=== PATIENT | female | born 1965 | race Two or more races ===

== ENCOUNTER 2024-10-20 23:31 | Emergency (ER) | payer MEDICAID, SELFPAY ==
[2024-10-20 23:32] VITALS: BMI 34.7
[2024-10-20 23:41] VITALS: BP 149/84; PULSE 67; RESP 16; TEMP 36.9; O2SAT 96
--- NOTE | 2024-10-21 00:17 | EDNOTE_ITS ---
ED Skin Abcess FB-RME/HPI General Chief complaint: Ear Stated complaint: LEFT EAR RUPTURE BLISTER Time Seen by Provider: 10/20/24 23:54 Arrival date/time: 10/20/24 23:31 59F with history of HTN and psych presents to ED with L outer ear and upper back painful and itchy rash. Rash started on L outer ear after she used a near hair dye. Limitations: no limitations Related Data Home Medications ?Medication ?Instructions ?Recorded ?Confirmed Hydrocodone/Acetaminophen * (NORCO 1 tab PO Q8HR PRN P AIN #0 tabs 07/03/14 5/325 *) Held on 09/24/22. Instructions: Resume on 09/25/22. MAY RESUME AFTER 24 HOURS ibuprofen 800 mg tablet 800 mg PO Q8HR PRN PAIN #0 t abs 07/03/14 Held on 09/24/22. Instructions: Resume on 09/25/22. MAY RESUME AFTER 24 HOURS paroxetine HCl 20 mg tablet (Paxil) 20 mg PO QAM #0 ta bs 07/03/14 losartan 50 mg tablet mg 09/23/22 omeprazole 40 mg capsule,delayed mg 09/23/22 release paroxetine HCl 20 mg tablet 20 mg PO DAILY 09/23/22 Previous Rx's ?Medication ?Instructions ?Recorded clobetasol 0.05 % topical cream 1 applic topical BID 2 weeks #15 10/20/24 grams Allergies Allergy/AdvReac Type Severity Reaction Status Date / Time No Known Allergies Allergy Verified 10/20/24 23:32 Review of Systems Review of Systems Systems Reviewed: All systems reviewed, normal except as documented Constitutional Constitutional: Reports system reviewed and no additional complaints, except as documented, Denies fever(s) and Denies headache(s) ENT Ears, Nose, Mouth, and Throat: Denies disequilibrium and Denies headache(s) Cardiovascular Cardiovascular: Reports system reviewed and no additional complaints, except as documented, Denies chest pain and Denies dyspnea Respiratory Respiratory: Reports system reviewed and no additional complaints, except as documented, Denies cough and Denies dyspnea Gastrointestinal Gastrointestinal: Reports system reviewed and no additional complaints, except as documented, Denies abdominal pain, Denies nausea and Denies vomiting Integumentary/Breasts Skin/Breast: Reports as per HPI, Reports pruritus, Reports rash and Reports skin pain Neurologic Neurologic: Reports system reviewed and no additional complaints, except as documented, Denies confusion, Denies disequilibrium and Denies headache(s) Psychiatric Psychiatric: Denies confusion Past Medical History Past Medical History NEUROLOGIC: Negative Neurological Disorders or Seizures CARDIAC: Positive Cardiac Disorders and Hypertension; Negative Congestive Heart Failure RESPIRATORY: Negative Chronic Obstructive Pulmonary Disease (COPD) GASTROINTESTINAL: Positive Gastroesophageal Reflux Disease GENITOURINARY: Negative Genitourinary Disorders or Renal Disease ENDOCRINE: Negative Endocrine Disorders, Diabetes Mellitus Type 1 or Diabetes Mellitus Type 2 HEMATOLOGIC: Negative Blood Disorders OTHER HISTORY: Positive Chicken Pox; Negative Blood Transfusions, Blood Transfusion Reaction or Anesthesia Reactions Family History FAMILY HISTORY: Positive Family Cancer (GRANDFATHER BONE CA, FATHER THYROID CA, SON OSTEOSARCOMA); Negative Family Anesthesia Reaction Surgical History SURGICAL: Positive Abdominal Surgery, Hysterectomy, Tubal Ligation and Section Social History SMOKING STATUS: Never smoker ED Exam General Limitations: Present no limitations General appearance: Present alert and in no apparent distress Head Head exam: Present atraumatic Eye Eye exam: Present normal appearance, PERRL and EOMI ENT ENT exam: Present normal exam, normal oropharynx and mucous membranes moist Neck Neck exam: Present normal inspection, full ROM and trachea midline Chest Chest inspection: Present normal inspection and symmetric chest wall rise Respiratory Respiratory exam: Present normal lung sounds bilaterally Cardiovascular Cardiovascular exam: Present regular rate, normal rhythm and normal heart sounds Abdominal Exam Abdominal exam: Present soft and normal bowel sounds Extremities Exam Extremities exam: Present normal inspection and full ROM Back Exam Back exam: Present normal inspection and full ROM Neurological Exam Neurological exam: Present alert, oriented X3 and CN II-XII intact Psychiatric Psychiatric exam: Present normal affect and normal mood Skin Skin exam: Present warm, dry, intact, normal color and rash Course Quality Measures none Vital Signs Vital signs: Vital Signs Temperature 98.4 F 10/20/24 23:41 Pulse Rate 67 10/20/24 23:41 Respiratory Rate 16 10/20/24 23:41 Blood Pressure 149/84 H 10/20/24 23:41 Pulse Oximetry (%) 96 10/20/24 23:41 Oxygen Delivery Method Room Air 10/20/24 23:41 O2 at 96% on RA and WNLs Skin / Abscess / Foreign Body MDM Narrative MDM Narrative:: 59F with history of HTN and psych presents to ED with L outer ear and upper back painful and itchy rash. Rash started on L outer ear after she used a near hair dye. Physical exam reveals rash on L outer ear with some blistering, as well as on bilateral upper back along non-dermatomal path. Patient is afebrile, calm, and alert. Likely contact dermatitis from hair dye. Patient data External records reviewed:: [facility] previous records Clinical information provided by:: patient Social determinants that could affect healthcare access:: none Patient has the following chronic illnesses:: none How is presenting disease/condition affected by chronic disease/condition?: no chronic disease Evaluation data The following diagnostics were reviewed and interpreted by me:: other (specify) (none) Lab and/or radiology exams considered but not ordered:: not ordered Interpretation Summary: n/a Medications / Prescriptions Medications or Prescriptions considered but not ordered:: not ordered Medication administrations:: n/a Consultations Consultation(s) initiated? (list below): No Diagnosis Skin/Abscess Differential Diagnosis: abscess of skin or subcutaneous tissue, viral exanthem, dermatophytosis, urticaria, herpes zoster, allergic reaction to drug, cellulitis, eczema, insect bites, impetigo and contact dermatitis Most likely diagnosis given after review of the tests above:: contact dermatitis Admission Indicated Admission indicated?: not indicated Admission Request Was there a request for admission?: No Disposition Plan Disposition Plan: Discharge Discharge Attestation Discharge Attestation: The patient and all family members were given an opportunity to ask questions and understood the discharge instructions. Discharge instructions specifically effects, indications for sooner follow up or return to the emergency department, and the expected course of current diagnosis. Patient condition: Stable Discharge Plan Plan Patient Disposition: HOME (Self Care) Disposition Comment: Stable Prescriptions/Referrals Prescriptions/Med Rec: New clobetasol 0.05 % cream 1 applic topical BID 14 Days Qty: 15 0RF No Action ibuprofen 800 MG tablet 800 mg PO Q8HR PRN (Reason: PAIN) Qty: 0 paroxetine HCl [Paxil] 20 MG tablet 20 mg PO QAM Qty: 0 Hydrocodone/Acetaminophen * (NORCO 5/325 *) 1 TAB tablet 1 tab PO Q8HR PRN (Reason: PAIN) Qty: 0 losartan 50 mg tablet Patient Comments: TAKE 1 TABLET BY MOUTH EVERY DAY omeprazole 40 mg capsule,delayed release(DR/EC) Patient Comments: TAKE 1 CAPSULE BY MOUTH EVERY DAY paroxetine HCl 20 mg tablet 20 mg PO DAILY Patient Comments: TAKE 1 TABLET BY MOUTH EVERY DAY Problem List Clinical Impression: Contact dermatitis Patient/Caregiver Discharge Instructions Education Materials: ED Contact Dermatitis Additional Instructions: Please follow-up with PCP within 24-48 hours and return immediately if symptoms worsen. Do not apply cream to skin folds or face. Print Language: Wolof Stand Alone Forms: Patient Portal Info Letter PA/FINISH PRODUCTION MANAGER Supervising Physician PA/FINISH PRODUCTION MANAGER Supervising Physician: Dr. Watkins
== END 2024-10-21 00:34 | disposition home or self-care (01) ==
LOC: SERX 10-21 00:07
PROVIDERS: Emergency Provider Emergency Medicine
DX: L25.9 Unspecified contact dermatitis, unspecified cause (principal); I10 Essential (primary) hypertension
CPT/HCPCS: 99281

== ENCOUNTER 2024-11-17 07:21 | Emergency (ER) | payer MEDICAID, SELFPAY ==
[2024-11-17 07:37] VITALS: BP 154/81; PULSE 74; RESP 18; TEMP 36.8; O2SAT 97; BMI 33.5
--- NOTE | 2024-11-17 07:53 | PD.EDSKIN ---
ED Skin Abcess FB-RME/HPI General Chief complaint: Skin/Abscess/Foreign Body Stated complaint: RASH ALL OVER BODY; SEEN 11/20/24 ER FOR SAME Time Seen by Provider: 11/17/24 07:24 Source: patient Arrival date/time: 11/17/24 07:21 This is a 59-year-old female presents to the emergency department with complaints of rash throughout upper body. Reports she was seen by previous provider was given ointment however reports ointment is not relieving her symptoms. Patient here for second evaluation medications. Patient denies shortness of breath no oral involvement. Mode of arrival: ambulatory Related Data Home Medications ?Medication ?Instructions ?Recorded ?Confirmed Hydrocodone/Acetaminophen * (NORCO 1 tab PO Q8HR PRN PAIN #0 tabs 07/03/14 5/325 *) Held on 09/24/22. Instructions: Resume on 09/25/22. MAY RESUME AFTER 24 HOURS ibuprofen 800 mg tablet 800 mg PO Q8HR PRN PAIN #0 tabs 07/03/14 Held on 09/24/22. Instructions: Resume on 09/25/22. MAY RESUME AFTER 24 HOURS paroxetine HCl 20 mg tablet (Paxil) 20 mg PO QAM #0 tabs 07/03/14 losartan 50 mg tablet mg 09/23/22 omeprazole 40 mg capsule,delayed mg 09/23/22 release paroxetine HCl 20 mg tablet 20 mg PO DAILY 09/23/22 09/23/22 Allergies Allergy/AdvReac Type Severity Reaction Status Date / Time No Known Allergies Allergy Verified 11/17/24 07:25 Review of Systems Review of Systems Systems Reviewed: All systems reviewed, normal except as documented Narrative Review of Systems: Gen: No fever, no chills, no weight loss EYES: No discharge, no visual changes, no pain HEENT: No ear pain, no congestion, no sore throat PULM: No shortness of breath, no cough, no congestion CV: No chest pain, no dyspnea on exertion, no palpitations GI: No nausea, no vomiting, no diarrhea, no pain, no constipation : No frequency, no urgency, no dysuria Musc/skel: No joint pain, no back pain Skin: +rash upper body Psyc: No hallucinations, no depression Heme/Lymph: No easy bleeding or bruising tendencies Neuro: No weakness, no headache ED Exam Narrative Physical exam: General: Sittiing in Exam table in no acute distress, answering questions appropriately HENT: normocephalic, atraumatic, EOMI, PERRLA, moist mucous membranes Chest: chest wall is nontender Cardiac: regular rate and rhythm, normal S1 and S2, no murmurs, rubs, or gallops, capillary refill ?2 seconds Pulmonary: clear to auscultation bilaterally, no wheezing, crackles, or rhonchi Abdominal: active bowel sounds, soft, nontender, nondistended Neuro: A&OX3, CN II-XII intact, sensation grossly intact bilaterally in UE and LE. Skin:Macule papule rash upper chest and bilateral arms. Ext: no lower extremity edema Course Quality Measures none Orders Category Date Time Status Dexamethasone Inj [Decadron Inj] Med 11/17/24 07:42 Discontinued 10 mg IM X1 ONE Vital Signs Vital signs: Vital Signs Temperature 98.2 F 11/17/24 07:37 Pulse Rate 74 11/17/24 07:37 Respiratory Rate 18 11/17/24 07:37 Blood Pressure 154/81 H 11/17/24 07:37 Pulse Oximetry (%) 97 11/17/24 07:37 Oxygen Delivery Method Room Air 11/17/24 07:37 Skin / Abscess / Foreign Body MDM Narrative MDM Narrative:: Evaluated for possible contact dermatitis secondary to allergies. Advised patient to continue allergy medication. Benadryl as needed. Dexamethasone given today ER precautions given. Jaimee to follow-up with her PCP for allergy testing. Patient data External records reviewed:: [facility] previous records Clinical information provided by:: patient Social determinants that could affect healthcare access:: none Patient has the following chronic illnesses:: no How is presenting disease/condition affected by chronic disease/condition?: no chronic disease Evaluation data The following diagnostics were reviewed and interpreted by me:: other (specify) Lab and/or radiology exams considered but not ordered:: no Interpretation Summary: no Medications / Prescriptions Medications or Prescriptions considered but not ordered:: no Medication administrations:: Medication Administration History Discontinued Medications Dexamethasone Sodium Phosphate (Dexamethasone Sod Phos Inj 10 Mg/Ml Vial) 10 mg IM X1 ONE Stop: 11/17/24 07:43 Last Admin: 11/17/24 08:01 Dose: 10 mg Documented By: ER All medications administered and effective Consultations Consultation(s) initiated? (list below): No Diagnosis Skin/Abscess Differential Diagnosis: abscess of skin or subcutaneous tissue, urticaria, allergic reaction to drug, cellulitis, eczema and contact dermatitis Most likely diagnosis given after review of the tests above:: Contact dermatitis possibly allergic Admission Indicated Admission indicated?: not indicated Admission Request Was there a request for admission?: No Disposition Plan Disposition Plan: Discharge Discharge Attestation Discharge Attestation: The patient and all family members were given an opportunity to ask questions and understood the discharge instructions. Discharge instructions specifically effects, indications for sooner follow up or return to the emergency department, and the expected course of current diagnosis. Patient condition: Stable Discharge Plan Plan Patient Disposition: HOME (Self Care) Patient condition on transfer: Stable Prescriptions/Referrals Prescriptions/Med Rec: No Action ibuprofen 800 MG tablet 800 mg PO Q8HR PRN (Reason: PAIN) Qty: 0 paroxetine HCl [Paxil] 20 MG tablet 20 mg PO QAM Qty: 0 Hydrocodone/Acetaminophen * (NORCO 5/325 *) 1 TAB tablet 1 tab PO Q8HR PRN (Reason: PAIN) Qty: 0 losartan 50 mg tablet Patient Comments: TAKE 1 TABLET BY MOUTH EVERY DAY omeprazole 40 mg capsule,delayed release(/EC) Patient Comments: TAKE 1 CAPSULE BY MOUTH EVERY DAY paroxetine HCl 20 mg tablet 20 mg PO DAILY Patient Comments: TAKE 1 TABLET BY MOUTH EVERY DAY Problem List Clinical Impression: Contact dermatitis Patient/Caregiver Discharge Instructions Discharge Activity: activity as tolerated Education Materials: ED Contact Dermatitis Additional Instructions: Please start steroid medication tomorrow. Remember to take the medication in the a.m. with food. - Continue to take Benadryl as needed for itchiness. - Please start Komal If no improvement within 1 week after discontinuation of steroids please make a follow-up appointment with your primary doctor for further evaluation. please make sure you schedule a follow-up appointment with your primary care physician or configuration management architect to discuss further testing or long-term management of allergies. Return to the emergency department if any worsening symptoms change in condition fever as discussed Print Language: Tajik Stand Alone Forms: [facility] Award Info., Patient Portal Info Letter PA/SIMRAN Supervising Physician TRISTAN/SIMRAN Supervising Physician: Dr. Rodriguez
[2024-11-17] MEDS: DEXAMETHASONE SOD PHOS INJ 10 MG/ML VIAL IM (08:01)
== END 2024-11-17 08:25 | disposition home or self-care (01) ==
LOC: SERX 08:11
PROVIDERS: Emergency Provider Emergency Medicine; PCP Physician Assistant
DX: L25.9 Unspecified contact dermatitis, unspecified cause (principal)
CPT/HCPCS: 96372; 99283; J1100